=== PATIENT | male | born 1965 | race Asian ===

== ENCOUNTER 2020-01-18 10:52 | Emergency (ER) | payer OTHER, MEDICARE, MEDICAID ==
[~2020-01-18] VITALS: Ht 157.5 cm; Wt 56.0 kg
[2020-01-18 11:38] LABS: BASOPHILS % 0.5 % (0.0-2.0); EOSINOPHILS % 1.6 % (0.0-5.0); HEMATOCRIT. 34.1 % (42.0-52.0); MEAN CORPUSCULAR HEMOGLOBIN 30.9 pg (28.0-32.0); MEAN CORPUSCULAR VOLUME 87.6 fL (80.0-94.0); MEAN PLATELET VOLUME 6.2 fl (7.4-10.4); NEUTROPHILS % 77.9 % (40.0-76.0); PLATELET 235 x1000/uL (130-400); RED CELL DISTRIBUTION WIDTH 15.3 % (11.6-14.6)
[2020-01-18 11:40] LABS: CHLORIDE 92 mEq/L (98-107)
[2020-01-18] MEDS ORDERED: LORAZEPAM 1MG TABLET PO ONE (12:00)
[2020-01-18 13:20] VITALS: BP 161/84
== END 2020-01-18 13:24 | disposition home or self-care (01) ==
LOC: ER 10:52
DX: R06.00 Dyspnea, unspecified (principal); I12.0 Hypertensive chronic kidney disease with stage 5 chronic kidney disease or end stage renal disease; N18.6 End stage renal disease; Z99.2 Dependence on renal dialysis
CPT/HCPCS: 36415; 71045; 80053; 83880; 84484; 85025; 93005; 99285